=== PATIENT | female | born 1955 | race Caucasian/White ===

== ENCOUNTER 2022-03-25 09:02 | Outpatient (CLI) | payer MEDICARE, BC | END 2022-03-25 09:03 | disposition home or self-care (01) | LOC: SCSMRI 09:02 | PROVIDERS: ATTEND Radiology Diagnostic Neuroimaging | DX: H53.2 Diplopia (principal); H50.30 Unspecified intermittent heterotropia; Z98.890 Other specified postprocedural states | CPT/HCPCS: 70553; 82565 ==

== ENCOUNTER 2022-12-09 10:14 | Outpatient (CLI) | payer MEDICARE, BC | END 2022-12-09 10:15 | disposition home or self-care (01) | LOC: RAD 10:14 | PROVIDERS: ATTEND Internal Medicine Critical Care Medicine | DX: R06.00 Dyspnea, unspecified (principal) | CPT/HCPCS: 71046 ==